=== PATIENT | male | born 1940 | race Caucasian/White ===

== ENCOUNTER 2018-05-20 11:00 | Emergency (ER) | payer OTHER ==
[~2018-05-20] VITALS: Ht 172.7 cm; Wt 78.0 kg
[2018-05-20] MEDS ORDERED: KEFLEX500 MG PO (14:00)
== END 2018-05-20 14:22 | disposition home or self-care (01) ==
LOC: ED 11:00
DX: C44.90 Unspecified malignant neoplasm of skin, unspecified (principal); L08.9 Local infection of the skin and subcutaneous tissue, unspecified; F17.200 Nicotine dependence, unspecified, uncomplicated; Z88.8 Allergy status to other drugs, medicaments and biological substances
CPT/HCPCS: 80053; 85025; 99283

== ENCOUNTER 2018-07-17 07:43 | Day surgery (SDC) | payer MEDICARE, OTHER ==
--- NOTE | 2018-06-27 16:10 | EKG ---
[facility] [address] [facility] [place] [address] Signed Sinus rhythm with marked sinus arrhythmia Otherwise normal ECG When compared with ECG of 19-JUN-2018 12:57, No significant change was found Confirmed by NEAL PETERSON MD ([id number]) on 06/27/2018 4:10:09 PM Electronically Signed By: NEAL PETERSON MD 06/27/18 1610 PATIENT NAME: GIN CORRAL Electrocardiogram DATE OF : 36 PHYSICIAN: NEAL PETERSON MD REPORT #: [id number] REPORT IS CONFIDENTIAL AND NOT TO BE RELEASED WITHOUT AUTHORIZATION
[~2018-07-17] VITALS: Ht 172.7 cm; Wt 78.0 kg
--- NOTE | ~2018-07-17 | OR ---
[facility] [address] [place], [place] [address] Draft DATE OF OPERATION: 07/17/2018 SURGEON: Rivera Mccarthy MD PREOPERATIVE DIAGNOSIS: Left facial skin cancer. POSTOPERATIVE DIAGNOSIS: Left facial skin cancer. PROCEDURE PERFORMED: Wide local excision of left facial skin cancer with a split-thickness skin graft closure. ANESTHESIA: General LMA, RN DISEASE MANAGEMENT, Marino. BLOOD LOSS: Minimal. SPECIMEN: To pathology. DRAINS: None. COMPLICATIONS: No complications. PREOP HISTORY: Mr. Whitt is a 77-year-old man with a large, ulcerated, bleeding, necrotic left facial tumor. This measures 6-7 cm in greatest diameter, just lateral to the left lateral canthus almost to the tragus. He was taken to the operating room for the above-mentioned procedure. OPERATIVE PROCEDURE AND FINDINGS: After informed consent, the patient was taken to the operating room, placed in a supine position, where general LMA anesthesia was induced. The patient and the procedure were verified. The left face and left anterior thigh were sterilely prepped and draped. The tumor measured 6 x 8 cm in greatest diameter, was ulcerated, deep down to underlying fascia. The wound lesion edges were injected with 1% lidocaine with epi. Wide local PATIENT NAME: GIN WHITT OPERATIVE REPORT DATE OF : 36 REPORT #: [id number] PHYSICIAN: RIVERA MCCARTHY MD PCP: NO PRIMARY CARE PHYSICIAN REPORT IS CONFIDENTIAL AND NOT TO BE RELEASED WITHOUT AUTHORIZATION [facility] [address] [place], [place] [address] Draft excision with centimeter margins was then marked and then excised with needlepoint cautery. The superficial temporal artery was encountered superiorly and inferiorly. It was clamped, divided, and tied with #3-0 silk. The tumor was dissected from superior to inferior with a needle point cautery, taking care to avoid tumor entry. The temporalis fascia was included with the specimen. Tumor was taken down off the zygomatic arch and then inferiorly completely excising tumor. Tumor was then sent to pathology with suture in the superior margin. Formalin for permanent sections. Hemostasis was verified. The length of total excision was 7 x 8 cm. A full split thickness skin graft was then taken from the left anterior thigh. A dermatome was used with 5 cm width, total of 7 cm of skin was taken. Pressure was applied. A sterile Opsite dressing then applied over the donor site. The skin graft was meshed 1.5 to 1 placed in the recipient site, sutured into place with #4-0 interrupted Vicryl, leaving tails in the four quadrants. Good excellent closure was obtained. A bolster-type dressing was then applied, Adaptic placed over the skin graft, cotton balls impregnated with mineral oil applied on top of that and the sutures tied down to make a bolster. A fluff type dressing was then applied over that with fluffed gauze and a 4-inch Devyn. The patient was then awakened, extubated, and transported to the recovery room in good condition. Rivera Mccarthy MD GC/MODL /[id number] Copies: ~ PATIENT NAME: GIN WHITT OPERATIVE REPORT DATE OF : 36 REPORT #: [id number] PHYSICIAN: RIVERA MCCARTHY MD PCP: NO PRIMARY CARE PHYSICIAN REPORT IS CONFIDENTIAL AND NOT TO BE RELEASED WITHOUT AUTHORIZATION
[~2018-07-17 07:43] MED LIST: KEFLEX500 MG PO
[2018-07-17] MEDS ORDERED: LISINOPRIL-HCT1 EAC2 PO (08:22)
--- NOTE | 2018-07-17 10:44 | NUR ---
07/17/18 Desmond4 Ellie Alexis 1038-PATIENT ARRIVED TO PACU ON 6L MASK O2 SAT 97% PATIENT NONAROUSABLE. RR EVEN. SR. LEFT THIGH DRESSING CDI. LEFT HEAD DRESSING HAS SCANT AMT OF SHADOWING ON GAUZE BENEATH DRESSING.
--- NOTE | 2018-07-17 11:41 | NUR ---
HARD COPY PRESCRIPTION GIVEN TO PATIENT'S FRIEND, KWASI.
[2018-07-17] MEDS ORDERED: OXYCODONE HCL5 MG PO (11:48)
== END 2018-07-17 12:25 | disposition home or self-care (01) ==
LOC: DS 07:43 → OPS 07:43 → EDSTATUS 08:30 → OPS 09:30
PROVIDERS: Otolaryngology
PROC: 0HB1XZZ Excision of Face Skin, External Approach (ICD-10-PCS; principal; 2018-07-17 09:30)
DX: C44.310 Basal cell carcinoma of skin of unspecified parts of face (principal); Z88.8 Allergy status to other drugs, medicaments and biological substances; Z79.899 Other long term (current) drug therapy
CPT/HCPCS: 00300; 93005; 93010; J2250; J2405; J2704; J2765; J3010; J7120